=== PATIENT | male | born 1995 | race Caucasian/White ===

== ENCOUNTER 2021-02-14 22:06 | Emergency (ER) | payer OTHER ==
[~2021-02-14 22:06] MED LIST: LIDOCAINE PATCH REMOVAL MC SCH
[2021-02-14 22:28] VITALS: TEMP 98; BMI 24.0
[2021-02-14] MEDS ORDERED: LIDOCAINE 5% TOPICAL PATCH TP ONE (23:28)
[2021-02-14] MEDS ORDERED: KETOROLAC TROMETHAMINE 15 MG/ML VIAL IVPUSH ONE (23:28)
[2021-02-14] MEDS ORDERED: LIDOCAINE 5% TOPICAL PATCH ONE (23:34)
[2021-02-14] MEDS ORDERED: KETOROLAC TROMETHAMINE 15 MG/ML VIAL ONE (23:34)
[2021-02-15 00:04] LABS: BASO % 0.4 % (0-2.0); EOS % 0.4 % (0-4.5); HEMATOCRIT 40.7 % (35.4-49); HEMOGLOBIN 13.9 GM/dL (11.7-16.9); LYMPH % 28.2 % (8-40); MCHC 34.1 g/dl (32.0-35.9); MEAN CELL VOLUME 82.1 fl (80-96); MONO % 7.6 % (3.8-10.2); NEUT % 63.4 % (42.8-82.8); PLATELET COUNT 241 10^3/uL (134-434); RBC 4.96 M/mm3 (4.00-5.60); RDW 13.3 % (11.9-15.9); WHITE BLOOD COUNT 9.3 K/mm3 (4.0-10.0)
[2021-02-15 00:25] LABS: CHLORIDE 102 mmol/L (98-107); SODIUM 137 mmol/L (136-145)
[2021-02-15 00:29] LABS: ANION GAP 6 MMOL/L (8-16); BLOOD UREA NITROGEN 14.7 mg/dL (7-18); CALCIUM 9.4 mg/dL (8.5-10.1); CO2 29 mmol/L (21-32); GLUCOSE,RANDOM 86 mg/dL (74-106)
[2021-02-15 00:32] LABS: CREATININE 0.7 mg/dL (0.55-1.3); SGOT/AST 24 U/L (15-37); SGPT/ALT 63 U/L (13-61)
[2021-02-15 00:34] LABS: BILIRUBIN,TOTAL 0.4 mg/dL (0.2-1)
[2021-02-15 00:35] LABS: ALK PHOS 63 U/L (45-117)
[2021-02-15 00:51] VITALS: BP 124/78; PULSE 75
== END 2021-02-15 02:18 | disposition home or self-care (01) ==
LOC: JER 22:06
PROC: 3E033GC Introduction of Other Therapeutic Substance into Peripheral Vein, Percutaneous Approach (ICD-10-PCS; principal; 2021-02-14)
DX: R07.9 Chest pain, unspecified (principal)
CPT/HCPCS: 36415; 71046-TC-FY; 80053; 82550; 82553; 84439; 84443; 84484; 85025; 93005; 93010; 99285-25